=== PATIENT | male | born 1990 | race Caucasian/White ===

== ENCOUNTER 2023-12-21 16:29 | Emergency (ER) | payer BC, SELFPAY ==
--- NOTE | ~2023-12-21 | XR_ITS ---
EXAMINATION: XR HAND, RIGHT CLINICAL INFORMATION: Crush injury. COMPARISON: None available. TECHNIQUE: PA, lateral, and oblique views of the right hand. XR/XR hand RT min 3V FINDINGS / IMPRESSION: There is a minimally displaced, obliquely oriented fracture through the mid aspect of the fourth metacarpal bone. The overlying soft tissue is mildly swollen. No additional fracture is identified.
[2023-12-21 17:21] VITALS: BP 132/64; PULSE 56; RESP 18; TEMP 36.5; O2SAT 97; BMI 26.4
--- NOTE | 2023-12-21 17:21 | ED.UPPEXIN ---
HPI - Extremity Injury (Upper) General Chief Complaint: Extremity Injury, Upper Stated Complaint: R hand pain Time Seen by Provider: 12/21/23 18:32 Related Data Previous Rx's ?Medication ?Instructions ?Recorded naproxen 500 mg tablet 500 mg PO BID PRN pain #14 tabs 12/21/23 Allergies Allergy/AdvReac Type Severity Reaction Status Date / Time No Known Allergies Allergy Verified 12/21/23 17:24 [facility] Social History Social History Advance Directives: No Advance Directives Information Provided: No Physical Exam Vital Signs: Vital Signs: Last Vital Signs Temp 98.2 F 12/21/23 19:57 Pulse 48 L 12/21/23 19:57 Resp 16 12/21/23 19:57 BP 126/60 12/21/23 19:57 Pulse Ox 100 12/21/23 19:57 O2 Del Method Room Air 12/21/23 19:57 BMI result Body Mass Index 26.4 Course Course Course Narrative: This is a Rapid Medical Exam performed in triage by Britney Velasco PA-C. Full HPI, ROS and PE to be performed by primary ED provider. 33 year-old M w/ no sig PMHx presenting to the ED c/o R hand pain s/p shutting in car door last week. R hand dominant PE: +R hand 4th metacarpal swelling & ttp. pain with ROM Plan: XR Reevaluation(s) Reevaluation #1: fx of 4th metacarpal. Ulnar gutter splint placed no complications. Patient tolerated well. States he does not need anything for pain. Neurovascular status intact after application of splint. Educated patient on diagnosis and treatment plan, answered all question, patient verbalizes understanding. At this time patient will be discharged home, advised to return with new or worsening symptoms. Educated on worrisome signs and symptoms and when to return. At this time I feel comfortable discharge home. Time: 20:01 Critical Care Time Critical Care Time Critical Care Time: No Discharge Plan Discharge Clinical Impression: Fx metacarpal Patient Disposition: Home, Self-Care Instructions: Hand Fracture (ED) Additional Instructions: Take your medications as prescribed. If you were prescribed antibiotics today, it is important that you take your medication to their entirety, do not skip any doses, do not finish them early. Follow-up with your primary care provider this week. Return to the emergency department with new or worsening symptoms. Such as fevers, chills, chest pain, shortness of breath, nausea, vomiting, dizziness, headache, vision changes, lethargy In case of emergency call 911 Follow-up with the orthopedic team if needed. Keep your splint dry. If you notice any changes in skin color, numbness, tingling or discoloration of digits please return promptly. XR/XR hand RT min 3V FINDINGS / IMPRESSION: There is a minimally displaced, obliquely oriented fracture through the mid aspect of the fourth metacarpal bone. The overlying soft tissue is mildly swollen. No additional fracture is identified. Prescriptions: New naproxen 500 mg tablet 500 mg PO BID PRN (Reason: pain) Qty: 14 0RF Rx Instructions: Take with food [place] [facility] [place] [facility] [Provider Group] - 2 days Stand Alone Forms: Work/School Release Interventions: ED Discharge Assessment Last Done: 12/21/23 19:57 Discharge Date/Time: 12/21/23 19:57 Print Language: [place]i
[2023-12-21 18:33] VITALS: BP 126/60; PULSE 48; RESP 16; TEMP 36.8; O2SAT 100
--- NOTE | 2023-12-21 19:27 | ED.EXTPRO ---
HPI - Extremity Problem General Chief complaint: Extremity Injury, Upper Stated complaint: R hand pain Time Seen by Provider: 12/21/23 18:32 Source: patient Mode of arrival: ambulatory Limitations: no limitations History of Present Illness ED Provider: Emily SINGH HPI Narrative: 33 year old M with no significant pmh presenting with concerns of R. hand pain after shutting it in a truck door on 12/13/2023. He states he has since been icing the area and the swelling has decreased. Denies any cp, fevers, sob, nausea, vomiting, numbess/tingling to the area. Related Data Previous Rx's ?Medication ?Instructions ?Recorded naproxen 500 mg tablet 500 mg PO BID PRN pain #14 tabs 12/21/23 Allergies Allergy/AdvReac Type Severity Reaction Status Date / Time No Known Allergies Allergy Verified 12/21/23 17:24 Review of Systems Review of Systems: Yes all other systems are reviewed and are negative PMFSH Past Medical History Attestation statement: The following information was validated with the patient. Source: old records reviewed and nursing notes reviewed Social History Social History Advance Directives: No Advance Directives Information Provided: No Physical Exam Vital Signs: Vital Signs: Last Vital Signs Temp 98.2 F 12/21/23 19:57 Pulse 48 L 12/21/23 19:57 Resp 16 12/21/23 19:57 BP 126/60 12/21/23 19:57 Pulse Ox 100 12/21/23 19:57 O2 Del Method Room Air 12/21/23 19:57 BMI result Body Mass Index 26.4 VSS Appearance: Alert.? Oriented X3.? No acute distress.? Head: Normocephalic, atraumatic, no step-offs or deformities Eyes: Pupils equal, round and reactive to light.? Neck: Normal inspection.? Neck supple.? CVS: Normal heart rate and rhythm.? Pulses normal.? Respiratory: No respiratory distress.? Breath sounds normal.? Abdomen: Soft and nontender.? Skin: Skin warm and dry.? Normal skin color.? Normal skin turgor.? Extremities: No lower extremity edema.? No calf ttp. 5/5 strength to bilateral upper and lower extremities; + mild swelling of R dorsum hand, ttp along 4th metacarpal on dorsal side; radial pulse 2+ symmetric, full ROM Neuro: Oriented X 3.? No motor deficit.? No sensory deficit. CN 2-12 intact Course Reevaluation(s) Reevaluation #1: X-ray of right hand minimally displaced obliquely oriented fracture through the mid aspect of 4th metacarpal bone. Overlying soft tissue is mildly swollen. Ulnar gutter splint applied. Neurovascular status intact after application of splint. Time: 20:03 Medical Decision Making Medical Decision Making [facility] Narrative: 33 year old M presenting with concerns of R. hand pain after shutting it in a truck door on 12/13/2023 PE - mild swelling of R dorsum hand, ttp along 4th metacarpal on dorsal side; radial pulse 2+ symmetric, full ROM Hx and pe concerning for fracture, dislocation, muscle strain. Unlikely osteomyelitis, arthritis, carpal tunnel syndrome. Plan - imaging Differential Diagnosis Differential Diagnoses: The differential diagnosis associated with the presentation includes Hx and pe concerning for fracture, dislocation, muscle strain. Unlikely osteomyelitis, arthritis, carpal tunnel syndrome. Admission/Observation Consideration of admission/observation: Escalation of care including admission/observation considered not indicated Lab Data [facility] Lab Attestation statement: I reviewed the patient's lab results. Independent Interpretation I performed an independent interpretation of an: Plain X-Ray ( XR/XR hand RT min 3V FINDINGS / IMPRESSION: There is a minimally displaced, obliquely oriented fracture through the mid aspect of the fourth metacarpal bone. The overlying soft tissue is mildly swollen. No additional fracture is identified. ) Radiology Impression Discussion of test interpretation with radiology: I have reviewed the radiologist's reading. Prescription Management I considered prescription management with: Pain Medication Discharge Plan Discharge Clinical Impression: Fx metacarpal Patient Disposition: Home, Self-Care Instructions: Hand Fracture (ED) Additional Instructions: Take your medications as prescribed. If you were prescribed antibiotics today, it is important that you take your medication to their entirety, do not skip any doses, do not finish them early. Follow-up with your primary care provider this week. Return to the emergency department with new or worsening symptoms. Such as fevers, chills, chest pain, shortness of breath, nausea, vomiting, dizziness, headache, vision changes, lethargy In case of emergency call 911 Follow-up with the orthopedic team if needed. Keep your splint dry. If you notice any changes in skin color, numbness, tingling or discoloration of digits please return promptly. XR/XR hand RT min 3V FINDINGS / IMPRESSION: There is a minimally displaced, obliquely oriented fracture through the mid aspect of the fourth metacarpal bone. The overlying soft tissue is mildly swollen. No additional fracture is identified. Prescriptions: New naproxen 500 mg tablet 500 mg PO BID PRN (Reason: pain) Qty: 14 0RF Rx Instructions: Take with food Referrals: [facility] [place] [facility] [Provider Group] - 2 days Stand Alone Forms: Work/School Release Interventions: ED Discharge Assessment Last Done: 12/21/23 19:57 Discharge Date/Time: 12/21/23 19:57 Print Language: [place]
[2023-12-21 19:57] VITALS: BP 126/60; PULSE 48; RESP 16; TEMP 36.8; O2SAT 100
== END 2023-12-21 19:57 | disposition home or self-care (01) ==
PROVIDERS: Emergency Provider Emergency Medicine
DX: S62.394A Other fracture of fourth metacarpal bone, right hand, initial encounter for closed fracture (principal); W23.0XXA Caught, crushed, jammed, or pinched between moving objects, initial encounter; Y93.89 Activity, other specified; Y92.810 Car as the place of occurrence of the external cause; Y99.9 Unspecified external cause status
CPT/HCPCS: 29125; 73130; 99283

== ENCOUNTER 2024-01-02 15:16 | Outpatient (AMB) | payer BC, SELFPAY ==
--- NOTE | 2024-01-02 15:30 | A.OFFVIS_ITS ---
Vital Signs 01/02/24 15:31 Height 6 ft Weight 195 lb BMI 26.4 Intake Visit Reasons: [employer] Fx right fourth metacarpal Intake Note: Sean is a 33 year old right hand dominant male who presents today as a new patient for fracture of his right 4th MC s/p DOI: 12/13/2023. Patient reports he slammed his truck door on his hand. He was [place] [facility] [place]23 for this where he was advised to follow up with orthopedics. Denies numbness, tingling, finger lock on, or pain. Denies prior surgeries or injuries to the right hand. Allergies No Known Allergies Allergy (Verified 01/02/24 16:09) HPI HPI [employer] Fx right fourth metacarpal: Details: Baldomero is a 33 year old right hand dominant man who presents for a right 4th metacarpal fracture, DOI: 12/13/23 after closing his hand in the door of his truck. He was seen in the ED on 12/21/23 and placed in an ulnar gutter splint. He presents today saying he is doing well, with minimal pain and swelling. He denies any numbness or tingling. 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 He says his work has modified his duties and he is currently supervising other employees. Review of Systems Const All systems reviewed & are unremarkable except as noted in HPI and below Physical Exam Vital Signs: BMI result Body Mass Index 26.4 Const General: cooperative, healthy appearing and no acute distress Orientation/consciousness: patient oriented x3 HEENT Head: Yes normocephalic and Yes atraumatic Eyes EOM: EOMs intact bilaterally Resp Effort & Inspection: normal respiratory effort and able to speak in complete sentences Cardio Jugular venous distension: no JVD Skin General skin exam: turgor normal Rashes: no rashes Neuro General: patient oriented x3 Extrem Other: Evaluation of Right Upper Extremity: The patient is alert, oriented, and in no acute distress Median, Ulnar, Radial nerves motor and sensory intact and sensation is normal to the tips of all digits Cap refill brisk He can make a fist and extend all of his digits. No rotational mal-alignment He has got a visible and palpable bump over the proximal shaft of the 4th metacarpal. It is minimally tender to palpation today. Resolving ecchymosis in the palm. No lacerations or evidence of open No Erythema or evidence of infection. Radiographs: 3 views of the right hand were taken and viewed by me today in clinic. They show a long, oblique, 4th metacarpal shaft fracture, with satisfactory fracture alignment and some evidence of interval bony healing when comparing today's x- rays to those from the 20 of December. Psych Appearance: grossly normal Affect: normal affect Attitude: cooperative Office Procedures Fracture Care Details: Fourth metacarpal fracture care 36023 Fracture Billing Code: Fracture Billing Code Assessment & Plan Assessment & Plan (1) Fracture of shaft of fourth metacarpal bone of right hand: Code(s): S62.324A - Displaced fracture of shaft of fourth metacarpal bone, right hand, initial encounter for closed fracture Category: Medical Plan Assessment & Plan: 1. Right 4th metacarpal shaft fracture, long, oblique From a crush injury, DOI: 12/13/23 I educated him about this condition I discussed operative and non-operative treatment options I recommend conservative management, and he is in agreement He was fitted for a velcro wrist splint to be worn when out of the house for he next 2 weeks. I discussed activity modification, he is able to use his hand for lightweight activities, with a 5lb weight limit for the next 2 weeks. He is to avoid any impact activities or falls at this time. He will move up to heavier activities by 4 weeks time. He will work on ROM exercises at home, 20x daily He works for [employer]. He was given a note for work to remain on light duty for the next 4 weeks, with a 2lb weight limit He will follow up in 4 weeks for a ROM check, no X-rays unless he has a new injury. Anticipate return to full duty at next appointment Scribed for Telma Kebede MD by Carlos Thornton, medical van driver, on 01/02/24 at 4:15 PM, EST. Orders: Orders XR hand RT min 3V Today M79.641 - Pain in right hand Coding Level of Care Code New Pt Level 3 (82614) Diagnoses Fracture of shaft of fourth metacarpal bone of right hand S62.324A CPT Codes Fracture Care - Fracture Billing Code: Fracture Billing Code ([id number])
[2024-01-02 15:31] VITALS: BMI 26.4
== END 2024-01-02 16:45 | disposition home or self-care (01) ==
PROVIDERS: Visit Provider Orthopaedic Surgery
DX: S62.324A Displaced fracture of shaft of fourth metacarpal bone, right hand, initial encounter for closed fracture (principal)
CPT/HCPCS: 99203

== ENCOUNTER 2024-01-02 15:26 | Outpatient (REF) | payer BC, SELFPAY ==
--- NOTE | ~2024-01-02 | XR_ITS ---
EXAMINATION: XR HAND, RIGHT CLINICAL INFORMATION: Right hand pain. COMPARISON: 12/21/2023 TECHNIQUE: PA, lateral, and oblique views of the right hand. FINDINGS: Oblique fourth metacarpal fracture is again noted with slight apex dorsal angulation, unchanged as compared to prior. New callus formation is identified. No definite osseous bridging. No new fractures. Joint spaces are well-preserved. XR/XR hand RT min 3V IMPRESSION: Healing fourth metacarpal fracture in unchanged alignment. Electronically signed by: Emmanuel Gandhi MD 01/22/2024 10:43 PM EDT
== END 2024-01-02 15:27 | disposition home or self-care (01) ==
LOC: HO.HOSX 15:26
DX: S62.324A Displaced fracture of shaft of fourth metacarpal bone, right hand, initial encounter for closed fracture (principal); W23.0XXA Caught, crushed, jammed, or pinched between moving objects, initial encounter; Y93.9 Activity, unspecified; Y92.9 Unspecified place or not applicable; Y99.9 Unspecified external cause status
CPT/HCPCS: 73130